=== PATIENT | female | born 1945 | race Two or more races ===

== ENCOUNTER 2017-09-27 09:33 | Outpatient (CLI) | payer OTHER ==
[~2017-09-27 09:33] MED LIST: ENALAPRIL MALEA10 MG
== END 2017-09-27 09:37 | disposition home or self-care (01) ==
LOC: SONOGRAMA 09:33
DX: E04.2 Nontoxic multinodular goiter (principal)

== ENCOUNTER 2022-12-19 23:46 | Inpatient (IN) | payer OTHER ==
[~2022-12-19] VITALS: Ht 152.4 cm; Wt 72.6 kg
[2022-12-20] MEDS ORDERED: PRAVASTATIN SOD40 MG PO (00:05)
--- NOTE | 2022-12-20 00:28 | NUR ---
SE RECIBE PTE ALERTA Y ORIENTADA X3. REFIERE TENER PRESION ALCON Y MALESTAR ESTOMACAL. SE CATHY PRESION ARTERIAL DE MANERA MANUAL LO CUAL PRESENTA 184/90. SE REALIZA EKG PARA PRESENTAR HX A , QUIEN INDICA QUE SE PASE A SECCION K. SE MONITOREAN LOS DEMAS VITALES Y SE UBICA A PTE.
--- NOTE | 2022-12-20 01:30 | NUR ---
PACIENTE ALERTA Y ORIENTADA X3. MR. JORDAN ORIENTA A PACIENTE SOBRE TX Y PROCEDIMIENTO A REALIZAR Y REFIRIO ENTENDER. ADMINISTRA MEDICAMENTO ORDENADO POR MD. REALIZA MUESTRAS ORDENADAS POR . CANALIZACION PATENTE Y MIRTHA DE EDEMA Y ERITEMA.SE MANTIENE BAJO OBSERVACION POR CAMBIOS SIGNIFICATIVOS EN CAMA CON BARANDAS ELEVADAS Y CONECTADA A MONITOR CARDIACO. LE REALIZAN PLACA ORDENADA POR .
--- NOTE | 2022-12-20 07:26 | NUR ---
SE RECIBE PTE EN LA UNIDAD DE SEC K. 9 PTE ALERTA Y CONCIENTE POR 3 PTE EN CAMA CON BARANDAS MIRTHA ACCESIBLE EN COMPANIA DE FLORES FAMILIAR, PTE CONECTADA A MONITOR CARDIACO Y OXYMETRIA DE PULSO. SE OBSERVA VENOPUNCION PATENTE Y MIRTHA DE EDEMA PTE SE MANTIENE EN OBSERVACION Y BAJO TRATAMIENTO.
--- NOTE | 2022-12-20 07:29 | NUR ---
PTE EN ESPERA DEL DR MIKI WEBB
== END 2022-12-22 14:51 | disposition home or self-care (01) | DRG 310 ==
LOC: ER 23:46 → MEDI 12-20 14:40 → SEC-K 12-20 14:40 → MEDI 12-20 19:03
PROVIDERS: ADMIT Specialist; ATTEND Specialist
PROC: B246ZZZ Ultrasonography of Right and Left Heart (ICD-10-PCS; principal; 2022-12-20)
PROC: BW28ZZZ Computerized Tomography (CT Scan) of Head (ICD-10-PCS; 2022-12-20)
PROC: 4A12X4Z Monitoring of Cardiac Electrical Activity, External Approach (ICD-10-PCS; 2022-12-20)
DX: I48.19 Other persistent atrial fibrillation (principal); I45.19 Other right bundle-branch block; I10 Essential (primary) hypertension; R00.2 Palpitations

== ENCOUNTER 2023-01-05 10:56 | Emergency (ER) | payer OTHER ==
[~2023-01-05] VITALS: Ht 149.9 cm; Wt 72.6 kg
[~2023-01-05 10:56] MED LIST changes: +PRAVASTATIN SOD40 MG PO
== END 2023-01-05 14:46 | disposition home or self-care (01) ==
LOC: ER 10:56
PROVIDERS: Emergency Medicine
DX: I48.91 Unspecified atrial fibrillation (principal); I10 Essential (primary) hypertension; Z91.013 Allergy to seafood; Z20.822 Contact with and (suspected) exposure to COVID-19

== ENCOUNTER → 2023-06-05 10:07 | Outpatient (CLI) | payer OTHER | END | disposition home or self-care (01) | LOC: SONOGRAMA 10:07 | DX: E04.1 Nontoxic single thyroid nodule (principal) ==

== ENCOUNTER 2023-06-07 16:07 | Outpatient (CLI) | payer OTHER | END 2023-06-07 16:10 | disposition home or self-care (01) | LOC: SONOGRAMA 16:07 | PROVIDERS: ATTEND Pathology Anatomic Pathology & Clinical Pathology | DX: E07.9 Disorder of thyroid, unspecified (principal) ==

== ENCOUNTER 2023-06-24 11:11 | Emergency (ER) | payer OTHER ==
[~2023-06-24] VITALS: Ht 149.9 cm; Wt 72.6 kg
[2023-06-24] MEDS ORDERED: ELIQUIS5 MG PO (11:38)
[2023-06-24 13:07] LABS: HEMATOCRIT 41.9 % (36.0-45.00); HEMOGLOBIN 14.3 g/dL (12.0-15.00); MEAN CELL VOLUME 89.1 fL (80.00-100.00); MEAN CORPUSCULAR HEMOGLOBIN 30.3 pg (27.00-32.0); PLATELET COUNT 231 K/uL (150-450); RED BLOOD COUNT 4.71 M/uL (4.00-6.00); RED CELL DISTRIBUTION WIDTH 13.3 % (11.5-14.5)
[2023-06-24 13:36] LABS: CALCIUM 9.9 mg/dL (8.5-10.1); CREATININE SERUM 0.6 mg/dL (0.55-1.02); GFR 96.94; POTASSIUM 4.22 mEq/L (3.5-5.1)
== END 2023-06-24 15:02 | disposition home or self-care (01) ==
LOC: ER 11:11
PROVIDERS: General Practice
DX: I48.91 Unspecified atrial fibrillation (principal); Z91.013 Allergy to seafood; I10 Essential (primary) hypertension; F41.8 Other specified anxiety disorders; I49.8 Other specified cardiac arrhythmias

== ENCOUNTER 2024-04-10 07:45 | Emergency (ER) | payer OTHER ==
[~2024-04-10] VITALS: Ht 149.9 cm; Wt 73.5 kg
[~2024-04-10 07:45] MED LIST changes: +ELIQUIS5 MG PO; +METOPROLOL SUCC25 MG PO
[2024-04-10] MEDS ORDERED: DICYCLOMINE HCL 20 MG TABLET PO STA (09:13)
[2024-04-10] MEDS ORDERED: FAMOtidine 10 MG/ML (4ML VIAL) IV STA (09:13)
[2024-04-10] MEDS ORDERED: DILTIAZEM HCL 25 MG/5 ML VIAL IV STA ×2 (10:11→10:23)
[2024-04-10 10:32] LABS: HEMATOCRIT 42.7 % (36.0-45.00); HEMOGLOBIN 14.1 g/dL (12.0-15.00); MEAN CELL VOLUME 90.8 fL (80.00-100.00); PLATELET COUNT 258 K/uL (150-450); RED CELL DISTRIBUTION WIDTH 13.3 % (11.5-14.5)
[2024-04-10] MEDS ORDERED: 0.9 % SODIUM CHLORIDE 1,000 ML IV STA (11:31)
[2024-04-10 11:43] LABS: CREATININE SERUM 0.72 mg/dL (0.55-1.02); GFR 78.34; POTASSIUM 4.43 mEq/L (3.5-5.1)
[2024-04-10 12:05] LABS: TSH 0.925 uIU/mL (0.358-3.74)
[2024-04-10 14:26] VITALS: BP 100/66; O2SAT 99
== END 2024-04-10 14:30 | disposition left against medical advice (07) ==
LOC: ER 07:47
PROVIDERS: General Practice
DX: R00.2 Palpitations (principal); Z91.013 Allergy to seafood; Z91.041 Radiographic dye allergy status; K21.9 Gastro-esophageal reflux disease without esophagitis; I10 Essential (primary) hypertension
CPT/HCPCS: 36415; 71045; 96365; 96366; 99283; J3490; J7030

== ENCOUNTER → 2024-08-18 | Emergency (ER) | payer OTHER ==
[~2024-08-18] VITALS: Ht 149.9 cm; Wt 73.5 kg
[~2024-08-18] MED LIST changes: +AMIODARONE HCL400 MG PO; +GUAIFENESIN 200 MG/10 ML BLIST.PACK PO STA
[2024-08-18 07:48] LABS: HEMATOCRIT 35.3 % (36.0-45.00); HEMOGLOBIN 11.9 g/dL (12.0-15.00); MEAN CELL VOLUME 89.3 fL (80.00-100.00); MEAN CORPUSCULAR HEMOGLOBIN 30.1 pg (27.00-32.0); MEAN CORPUSCULAR HGB CONC 33.7 g/dl (32.0-36.0); PLATELET COUNT 226 K/uL (150-450); RED BLOOD COUNT 3.95 M/uL (4.00-6.00); RED CELL DISTRIBUTION WIDTH 14.3 % (11.5-14.5)
== END | disposition left against medical advice (07) ==
LOC: ER 04:06
PROVIDERS: General Practice
DX: R53.81 Other malaise (principal); Z20.822 Contact with and (suspected) exposure to COVID-19; Z88.8 Allergy status to other drugs, medicaments and biological substances; Z91.013 Allergy to seafood